=== PATIENT | male | born 1980 | race Caucasian/White ===

== ENCOUNTER 2018-05-10 13:40 | Emergency (ER) | payer OTHER ==
[~2018-05-10] VITALS: Ht 180.3 cm; Wt 82.2 kg
[2018-05-10 13:58] VITALS: BP 122/67
== END 2018-05-10 17:09 | disposition home or self-care (01) ==
LOC: ER 13:41
DX: N50.812 Left testicular pain (principal); N50.811 Right testicular pain; Z90.49 Acquired absence of other specified parts of digestive tract
CPT/HCPCS: 99281

== ENCOUNTER 2019-09-30 21:11 | Emergency (ER) | payer OTHER ==
[~2019-09-30] VITALS: Ht 180.3 cm; Wt 75.0 kg
[2019-09-30 21:12] VITALS: BP 147/77
[2019-09-30] MEDS ORDERED: naproxen 500mg tablet PO ONE (21:30)
[2019-09-30] MEDS ORDERED: amox tr/potassium clavulanate 875/125mg TAB PO ONE (21:30)
[2019-09-30] MEDS ORDERED: HYDROcodone/acetaminophen 10/325mg tab PO ONE (21:30)
--- NOTE | 2019-09-30 21:44 | NUR ---
Attempted to medicate Pt with ordered meds, Pt chose to leave ED prior to treatment. Unable to convince Pt to take medications. Pt did not give a reason why.
--- NOTE | 2019-09-30 21:46 | NUR ---
ED MD Dr. Lewis made aware.
== END 2019-09-30 21:51 | disposition home or self-care (01) ==
LOC: ER 21:11
DX: K02.9 Dental caries, unspecified (principal); Z90.49 Acquired absence of other specified parts of digestive tract
CPT/HCPCS: 99281